=== PATIENT | female | born 1945 | race Caucasian/White ===

== ENCOUNTER → 2017-12-04 11:10 | Outpatient (CLI) | payer OTHER, SELFPAY | PROVIDERS: Visit Provider Nurse Practitioner Adult Health | DX: N39.0 Urinary tract infection, site not specified (principal); R82.998 Other abnormal findings in urine | CPT/HCPCS: 87077; 87086; 87088; 87186 ==

== ENCOUNTER 2019-04-15 08:54 | Day surgery (SDC) | payer MEDICARE, SELFPAY ==
[2019-04-15] VITALS (7 sets, daily range): BP systolic 103–151; BP diastolic 64–80; PULSE 52–68; RESP 16; TEMP 35.6–37.2; O2SAT 96–99; BMI 27.5
[2019-04-15] MEDS: Lactated Ringers 1,000 ML 100 ML IV (09:44)
--- NOTE | 2019-04-15 10:49 | RAD_ITS ---
STUDY: X-RAY - PELVIS REASON FOR EXAM: Female, 73 years old. Interstim therapy TECHNIQUE: Fluoroscopic guidance was provided to Dr. Cope. 2 fluoroscopic spot films were obtained. FLUOROSCOPY TIME: 0:24.9 minutes/seconds. RADIATION DOSAGE (If Supplied By Facility): 8.39 mGy COMPARISON: None. FINDINGS: Images demonstrate a stimulator probe passing through the right C3-4 intervertebral neural foramen into the right presacral soft tissues. RAD/Pelvis 1 or 2 Views IMPRESSION: Fluoroscopic guidance for trans-sacral stimulator placement. Electronically Signed: Jackson Lo MD at 13:02 EST , Service support ,
[2019-04-15] MEDS: Cefazolin 2 GM in 0.9% Normal Saline 100 ML IV (10:55)
[2019-04-15] MEDS: Ketorolac 15 MG/ML Vial IV (10:59)
--- NOTE | 2019-04-15 11:00 | DCINST_ITS ---
Discharge Diet: Light diet - advance as tolerated Discharge Activity: Return to Normal Activity Return to work on:: 04/22/19 May shower in (days): 1 May resume sexual activity in: 4 weeks Call your doctor if your incision/area has: Continuous Slow Oozing, Sudden Increased Bleeding, Increased Pain/ Swelling, Increased Redness, Foul Smelling Discharge, Swelling at the incision site Suture Line Care: Avoid Pulling/Pushing, Avoid Pinching/Bending Allergies/Adverse Reactions: Allergies plastic tape Adverse Reaction (Uncoded 04/15/19 09:23) itching,rash Medications to take at Discharge Alendronate Sodium [Fosamax] 70 mg PO Q7D@0700 04/10/19 Donepezil HCl [Aricept] 10 mg PO QHS 04/10/19 Rosuvastatin Calcium [Crestor] 10 mg PO QHS 04/10/19 Estradiol 1 applic VAGINAL .TWICE WEEKLY 04/14/19 Cephalexin [Keflex] 500 mg PO Q8 #9 cap 04/15/19 Ibuprofen 600 mg PO Q6H PRN PRN #20 tab 04/15/19 The following prescriptions were given: Ibuprofen 600 mg PO Q6H PRN PRN #20 tab PRN Reason: Pain Score 1-10/10 Transmission Status: Pending to [id number] Cephalexin [Keflex] 500 mg PO Q8 #9 cap Transmission Status: Pending to [id number] Primary Care Physician: Elliot Pires PA [Primary Care Provider] - Test Results: Test results from this visit will be discussed in further detail at your follow- up appointment, if applicable. Please Follow Up With: Andrae Cope MD When: in 2 weeks, please call to make an appointment.
--- NOTE | 2019-04-15 11:50 | PCM.OPRPT ---
Report of Operation Date of Procedure: 04/15/19 Pre-Operative Diagnosis: Overactive bladder and urge incontinence Post-Operative Diagnosis: Same Surgery/Procedure Performed:: Stage I and stage II InterStim therapy Description of Surgical Findings:: 6 73-year-old female with overactive bladder with urgency and frequency and incontinence. She is failed medical therapy. We talked about options of management including InterStim therapy, peripheral nerve stimulation, Botox therapy. We performed a PNE trial before in the office and she had a very good response with mother and 50% improvement in her symptoms and she elected to have InterStim therapy to help with her bladder control. 73-year-old female was taken back to the operating room after smooth induction of anesthesia she was placed facedown on the table the lower back and buttocks were prepped and draped in usual sterile fashion, we identified the landmarks of the spinous process of the pelvis on both sides we used as a landmark to identify the entry point for our needle and then we identified the the coccyx and the bony marked landmarks. We then used a needle to advanced into the skin to the S3 foramen on the patient's right side we used once we once the needle dropped into the S3 foramen which stimulated we had good nina response very minimal toe response, we then tested 1 frame and higher and we had a again good nina response but appeared to be more of plantar flexion and rotation so we felt that this was S2 so we went back to her original location of the S3 we then put the stylette to the needle and then made an incision in the skin we advanced the trocar over the stylette until the trocar reached the mid plate between the anterior and posterior of the sacrum. Once this was in good position then we advanced the tined lead through the stylette until the leads were exposed we then checked 012 and 3 very minimal response on 0 but we had good response and 1 good response on to a good response on 3. Once we checked all this then we pulled back on the stylette releasing the tines the InterStim device was then in place we then created a pocket for centimeter incision was made in the skin dissected the pocket free and then tunneled the lead to the pocket we then cleaned the lead off completely and attached the lead to the generator and then the generator was placed in the pocket with the Progression sign up. Once the lead was dropped in. Then we performed impedance check the impedance check was confirmed to be normal and then we closed the pocket with 3-0 Vicryl and a 4-0 Monocryl and then we closed the incision site where the needle was placed with a single stitch once this was completed then we placed Steri-Strips and bandage on the sites patient's anesthetic was reversed he was taken back to PACU good condition and she will be programmed for the InterStim device I will see her back in 2 weeks for checkup. Type of Anesthesia:: Local MAC Drains: none - Admit VTE Documentation VTE Present on Admission: No VTE Mechan Device Prophylaxis: SCD's
== END 2019-04-15 13:38 | disposition home or self-care (01) ==
LOC: SDC 08:56 → AC 08:59
PROVIDERS: PCP Physician Assistant; Referring Provider Urology; Visit Provider Urology
PROC: (CPT 64561; principal; 2019-04-15 10:30)
DX: N39.46 Mixed incontinence (principal); N32.81 Overactive bladder; I10 Essential (primary) hypertension; E78.00 Pure hypercholesterolemia, unspecified; Z87.440 Personal history of urinary (tract) infections; Z79.899 Other long term (current) drug therapy
CPT/HCPCS: 64561; 64590; 95971; 72170; 76000; J7120; C1767; J2405

== ENCOUNTER → 2019-05-26 | Outpatient (CLI) | payer MEDICARE, SELFPAY ==
[2019-04-15 09:24] VITALS: BMI 27.5
== END | disposition home or self-care (01) ==
LOC: LABSPEC 10:43
PROVIDERS: PCP Physician Assistant; Referring Provider Urology; Visit Provider Urology
DX: N39.0 Urinary tract infection, site not specified (principal)
CPT/HCPCS: 87077; 87086; 87088

== ENCOUNTER → 2020-05-09 | Outpatient (CLI) | payer MEDICARE, SELFPAY ==
[2019-04-15 09:24] VITALS: BMI 27.5
== END | disposition home or self-care (01) ==
LOC: LABSPEC 12:24
PROVIDERS: PCP Physician Assistant; Referring Provider Nurse Practitioner Adult Health; Visit Provider Nurse Practitioner Adult Health
DX: Z87.440 Personal history of urinary (tract) infections (principal)
CPT/HCPCS: 87086; 87088; 87186